=== PATIENT | male | born 1985 | race African-American/Black ===

== ENCOUNTER 2017-03-07 21:41 | Emergency (ER) | payer OTHER ==
[~2017-03-07] VITALS: Ht 185.4 cm; Wt 88.5 kg
[~2017-03-07 21:41] MED LIST: HYDR25TA5 PO; OMEP20TA PO
[2017-03-07 21:43] VITALS: BP 161/84; PULSE 101; RESP 16; TEMP 99; O2SAT 100
--- NOTE | 2017-03-07 22:35 | PD ---
HPI Chief Complaint: Skin Problem Time Seen by Provider: 22:35 Travel History International Travel<30 days: No Contact w/Intl Traveler<30days: No Traveled to known affect area: No History of Present Illness HPI 31-year-old male presents to the emergency department for evaluation of a painful lesion on his anterior neck. Patient believes he had an infected hair. His girlfriend states that she pulled this out. He was able to express purulent drainage from the area earlier but now is a hardened large lump. Denies any fever or chills. No difficulty swallowing. No other symptoms to report. PFSH Past Medical History Chest Pain: Yes (OCC) Hypertension: Yes Past Surgical History Surgical History: No Previous Surgery Social History Alcohol Use: Yes (occasional) Tobacco Use: No Substance Use: No Allergies-Medications (Allergen,Severity, Reaction): Coded Allergies: Lisinopril (Verified Allergy, Intermediate, 11/09/16) Reported Meds & Prescriptions Reported Meds & Active Scripts Active Keflex (Cephalexin) 500 Mg Cap 500 Mg PO Q6H 5 Days Bactrim DS (Sulfamethoxazole-Trimethoprim) 800-160 Mg Tab 1 Tab PO BID Omeprazole 20 Mg Tab 20 Mg PO DAILY Hydrochlorothiazide 25 Mg Tab 25 Mg PO DAILY Review of Systems Except as stated in HPI: all other systems reviewed are Neg Physical Exam Narrative GENERAL: Well-nourished, well-developed male patient in no acute distress SKIN: Focused skin assessment warm/dry. 3 cm in diameter area of induration with a raised lesion on the anterior neck. No fluctuance. HEAD: Normocephalic. EYES: No scleral icterus. No injection or drainage. ENT: Mucosa pink and moist. No erythema or exudates. No uvular edema. No uvular , palatal, or tonsillar deviation. Airway patent. Nasal turbinates appear normal without nasal blood, purulent drainage or septal hematoma. Soft submental space. NECK: Supple, trachea midline. No JVD or lymphadenopathy. CARDIOVASCULAR: Regular rate and rhythm without murmurs, gallops, or rubs. RESPIRATORY: Breath sounds equal bilaterally. No accessory muscle use. Data Data Last Documented VS Vital Signs Date Time Temp Pulse Resp B/P Pulse Ox O2 Delivery O2 Flow Rate FiO2 03/07/17 21:43 99.0 101 16 161/84 100 Room Air Orders Sulfamet-Trimeth Ds 800-160 Mg (Bactrim (03/07/17 22:45) Cephalexin (Keflex) (03/07/17 22:45) Wound Culture And Gram Stain (03/07/17 22:41) [facility] Medical Decision Making Medical Screen Exam Complete: Yes Emergency Medical Condition: Yes Medical Record Reviewed: Yes Differential Diagnosis Folliculitis versus abscess versus cellulitis Narrative Course 31-year-old male presents to department for evaluation of a painful lesion on his anterior neck. Physical exam is consistent with folliculitis. Area is prepped and appears with a sterile 18-gauge needle. Purulent drainage was expressed and culture obtained. Patient tolerated this well. He'll be started on oral antibiotics. He is encouraged follow-up with primary care provider and return immediately if any acute worsening symptoms. Procedures Procedure Narrative Verbal consent was obtained prior to procedure Area is prepped with Betadine and is pierced with a sterile 18-gauge needle. Purulent drainage was expressed and culture obtained. Patient tolerated this well. Diagnosis Primary Impression: Infectious folliculitis Referrals: Primary Care Physician Patient Instructions: Folliculitis (ED), General Instructions Additional Instructions: WARM COMPRESSES TO THE AFFECTED AREA START ANTIBIOTICS TOMORROW AND TAKE UNTIL COMPLETE RETURN TO ED WITH ACUTE WORSENING OF SYMPTOMS Med/Other Pt SpecificInfo: Prescription(s) given Scripts Cephalexin (Keflex)500 Mg [id number] Mg PO Q6H 5 Days Ref 0 Prov:Blanca Trejo 03/07/17 Sulfamethoxazole-Trimethoprim (Bactrim DS)800-160 Mg Tab1 Tab PO BID #20 TAB Ref 0 Prov:Blanca Trejo 03/07/17 Disposition: 01 DISCHARGE HOME Condition: Stable Blanca Trejo Mar 07, 2017 22:35
[2017-03-07] MEDS ORDERED: CEPHALEXIN MONOHYDRATE 500 MG CAP PO ONE (22:45)
[2017-03-07] MEDS ORDERED: BACT800T5 PO (22:45)
[2017-03-07] MEDS ORDERED: CEPH-460 PO (22:45)
[2017-03-07] MEDS ORDERED: SULFAMETHOXAZOLE-TRIMETHOPRIM DS 800-160 MG TAB PO ONE (22:45)
== END 2017-03-07 23:05 | disposition home or self-care (01) ==
LOC: NEPD 21:41
DX: L73.8 Other specified follicular disorders (principal); B95.62 Methicillin resistant Staphylococcus aureus infection as the cause of diseases classified elsewhere
CPT/HCPCS: 10060; 86403; 87070; 87186; 87205